=== PATIENT | male | born 1945 | race African-American/Black ===

== ENCOUNTER 2019-02-26 00:18 | Inpatient (IN) | payer MEDICARE, OTHER ==
[2019-02-26] VITALS (9 sets, daily range): BP systolic 131–177; BP diastolic 57–96
[~2019-02-26] VITALS: Ht 185.4 cm; Wt 75.3 kg
[2019-02-26] MEDS ORDERED: IPRATROPIUM BROMIDE (0.02%) 0.5MG/2.5ML NEB HHN STA (00:25)
[2019-02-26] MEDS ORDERED: ONDANSETRON HCL 4MG/2ML INJ IV STA (00:25)
[2019-02-26] MEDS ORDERED: METHYLPREDNISOLONE SOD SUCC 125 MG/2 ML VIAL IV STA (00:25)
[2019-02-26] MEDS ORDERED: ALBUTEROL (0.083%) 2.5MG/3ML NEB HHN SCH (00:30)
[2019-02-26] MEDS ORDERED: MAGNESIUM 2 G PREMIX 50 ML IV ONE (00:30)
[2019-02-26 00:51] LABS: BG BASE EXCESS -4.3 mmol/L (-2.0-2.0); BG BILEVEL POS AIRWAY PRESSURE 18/5; BG CARBOXYHEMOGLOBIN 0.6 % (0.5-1.5); BG DEOXYHEMOGLOBIN 1.2 % (0.0-5.0); BG FRACTION INSPIRED OXYGEN 40; BG HCO3 ACT 23.7 mmol/L (22.0-26.0); BG METHEMOGLOBIN 0.3 % (0.0-1.5); BG OXYGEN SATURATION 98.8 % (92.0-98.5); BG OXYHEMOGLOBIN 97.9 % (94.0-97.0); BG PCO2 54.8 mmHg (35.0-45.0); BG PH 7.254 (7.350-7.450); BG SAMPLE SITE RIGHT RADIAL; BG TOTAL HEMOGLOBIN 15.7 g/dL (12.0-18.0); BG VENT MODE MASK - BIPAP
[2019-02-26 00:51] LABS: HEMATOCRIT. 46.2 % (42.0-52.0); MEAN CORPUSCULAR HEMOGLOBIN 27.8 pg (28.0-32.0); MEAN CORPUSCULAR VOLUME 85.7 fL (80.0-94.0); MEAN PLATELET VOLUME 8.5 fl (7.4-10.4); PLATELET 251 x1000/uL (130-400); RED BLOOD CELL COUNT 5.39 mill/uL (4.7-6.1); RED CELL DISTRIBUTION WIDTH 15.3 % (11.6-14.6)
[2019-02-26 00:56] LABS: CHLORIDE 107 mEq/L (98-107)
[2019-02-26] MEDS ORDERED: SODIUM CHLORIDE 0.9% 1,000 ML IV ONE (00:58)
[2019-02-26] MEDS ORDERED: MAGNESIUM 1G PREMIX 100ML IV NR ×2 (01:00→02:00)
[2019-02-26 01:21] LABS: PLATELET ESTIMATE NORMAL
[2019-02-26] MEDS ORDERED: GUAIFENESIN/CODEINE 200-20MG/10ML UDC PO ONE (02:30)
[2019-02-26] MEDS ORDERED: DEXT 5%/0.45% NACL 1000ML 1,000 ML IV SCH (08:00)
[2019-02-26] MEDS ORDERED: DEXTROSE 50% WATER 50ML SYRINGE IV PRN ×2 (08:15)
[2019-02-26] MEDS: IPRATROPIUM BROMIDE (0.02%) 0.5MG/2.5ML NEB HHN SCH ×5 (09:00→23:56)
[2019-02-26] MEDS: METHYLPREDNISOLONE SOD SUCC 40 MG/ML VIAL IV SCH ×3 (09:05→21:14)
[2019-02-26] MEDS: BLOOD SUGAR DIAGNOSTIC STRIP TEST SCH ×3 (12:29→21:00)
[2019-02-26] MEDS: GUAIFENESIN-DM 200MG-20MG/10ML UDC PO PRN ×2 (13:26→22:10)
[2019-02-26] MEDS: INSULIN LISPRO 100 UNITS/ML SUBCUT SCH ×3 (13:27→22:11)
[2019-02-26] MEDS ORDERED: CLONIDINE 0.1MG TABLET PO PRN (16:45)
[2019-02-26] MEDS: BUDESONIDE 0.5MG/2ML NEB HHN SCH ×2 (16:56→20:50)
[2019-02-26] MEDS ORDERED: MONTELUKAST SODIUM 10MG TABLET PO SCH (17:00)
[2019-02-26 18:21] LABS: *AMPHETAMINES SCREEN URINE NEGATIVE (NEGATIVE); *BARBITURATES SCREEN URINE NEGATIVE (NEGATIVE); *BENZODIAZEPINES SCREEN URINE NEGATIVE (NEGATIVE); *COCAINE SCREEN URINE NEGATIVE (NEGATIVE); METHADONE URINE SCREEN NEGATIVE (NEGATIVE); OPIATES URINE SCREEN PRESUMTIVE POSITIVE (NEGATIVE)
[2019-02-26 18:22] LABS: CANNABINOID URINE SCREEN NEGATIVE (NEGATIVE); PHENCYCLIDINE URINE SCREEN NEGATIVE (NEGATIVE)
[2019-02-26 18:23] LABS: CLARITY URINE CLEAR (CLEAR); COLOR URINE YELLOW (YELLOW); KETONES URINE NEGATIVE (NEGATIVE); LEUKOCYTE ESTERASE URINE NEGATIVE (NEGATIVE); NITRITE URINE NEGATIVE (NEGATIVE); OCCULT BLOOD URINE NEGATIVE (NEGATIVE); PROTEIN URINE NEGATIVE (NEGATIVE); SPECIFIC GRAVITY URINE 1.013 (1.005-1.030); UROBILINOGEN URINE 0.2 E.U./dL (0.2-1.0)
[2019-02-26] MEDS: LORATADINE 10MG TABLET PO SCH (18:31)
[2019-02-26] MEDS: FAMOTIDINE 20MG TABLET PO SCH (21:14)
[2019-02-26] MEDS: INSULIN GLARGINE UD 100 UNITS/ML SYR SUBCUT SCH (22:11)
[2019-02-27] VITALS (8 sets, daily range): BP systolic 105–150; BP diastolic 62–96
[2019-02-27] MEDS: IPRATROPIUM BROMIDE (0.02%) 0.5MG/2.5ML NEB HHN SCH ×2 (04:40→08:53)
[2019-02-27] MEDS: METHYLPREDNISOLONE SOD SUCC 40 MG/ML VIAL IV SCH (06:29)
[2019-02-27] MEDS: GUAIFENESIN-DM 200MG-20MG/10ML UDC PO PRN (06:32)
[2019-02-27] MEDS: BLOOD SUGAR DIAGNOSTIC STRIP TEST SCH (08:13)
[2019-02-27] MEDS: LORATADINE 10MG TABLET PO SCH (08:25)
[2019-02-27] MEDS: FAMOTIDINE 20MG TABLET PO SCH (08:25)
[2019-02-27] MEDS: INSULIN LISPRO 100 UNITS/ML SUBCUT SCH (08:26)
[2019-02-27] MEDS: BUDESONIDE 0.5MG/2ML NEB HHN SCH (08:53)
[2019-02-27] MEDS ORDERED: ENOXAPARIN 30MG/0.3ML SYR SUBCUT SCH (10:23)
[2019-02-27] MEDS: INSULIN GLARGINE UD 100 UNITS/ML SYR SUBCUT SCH (10:31)
== END 2019-02-27 12:33 | disposition home or self-care (01) | DRG 189 ==
LOC: ER 00:18 → 5EST 02:24 → EDBEDREQ 02:42 → EDBEDREQSVC 02:42 → EDBEDREQTM 02:42 → ENRESERV 05:42
PROVIDERS: ADMIT Internal Medicine; ATTEND Internal Medicine
PROC: 5A09357 Assistance with Respiratory Ventilation, Less than 24 Consecutive Hours, Continuous Positive Airway Pressure (ICD-10-PCS; principal; 2019-02-26)
DX: J96.02 Acute respiratory failure with hypercapnia (principal); E87.2 Acidosis; J44.1 Chronic obstructive pulmonary disease with (acute) exacerbation; J44.0 Chronic obstructive pulmonary disease with (acute) lower respiratory infection; J20.9 Acute bronchitis, unspecified; E11.9 Type 2 diabetes mellitus without complications; Z77.22 Contact with and (suspected) exposure to environmental tobacco smoke (acute) (chronic); I10 Essential (primary) hypertension; Z87.891 Personal history of nicotine dependence; Z88.6 Allergy status to analgesic agent; Z79.84 Long term (current) use of oral hypoglycemic drugs
CPT/HCPCS: 36415; 36600; 71045; 80305; 81003; 82375; 82805; 82947; 82962; 83605; 83880; 84484; 93005; 93970; 94640; 99291; J1650; J1815; J2405; J2920; J2930; J3475; J7030; J7611; J7626

== ENCOUNTER 2019-07-06 17:40 | Emergency (ER) | payer MEDICARE, OTHER ==
[~2019-07-06] VITALS: Ht 180.3 cm; Wt 60.0 kg
[2019-07-06] MEDS ORDERED: PREDNISONE 20MG TABLET PO ONE (19:00)
[2019-07-06] MEDS ORDERED: IPRATROPIUM/ALBUTEROL 0.5-3(2.5)MG/3ML NEB HHN ONE (19:00)
[2019-07-06 23:00] VITALS: BP 124/76
== END 2019-07-07 00:07 | disposition home or self-care (01) ==
LOC: ER 17:40
DX: J44.1 Chronic obstructive pulmonary disease with (acute) exacerbation (principal); E11.9 Type 2 diabetes mellitus without complications; I10 Essential (primary) hypertension
CPT/HCPCS: 94640; 99285; J7512

== ENCOUNTER 2019-07-23 09:40 | Inpatient (IN) | payer MEDICARE, OTHER ==
[~2019-07-23] VITALS: Ht 172.7 cm; Wt 72.8 kg
[2019-07-23] MEDS ORDERED: ALBU18HF2 IH (09:48)
[2019-07-23] MEDS ORDERED: METF-815 PO (09:48)
[2019-07-23] MEDS ORDERED: LEVO25TA7 PO (09:48)
[2019-07-23] MEDS ORDERED: MAGNESIUM 2 G PREMIX 50 ML IV STA (10:02)
[2019-07-23] MEDS ORDERED: ALBUTEROL (0.083%) 2.5MG/3ML NEB HHN STA ×2 (10:02→12:45)
[2019-07-23] MEDS ORDERED: METHYLPREDNISOLONE SOD SUCC 125 MG/2 ML VIAL IV STA (10:02)
[2019-07-23] MEDS ORDERED: IPRATROPIUM BROMIDE (0.02%) 0.5MG/2.5ML NEB HHN STA (10:02)
[2019-07-23 10:25] LABS: BASOPHILS % 0.4 % (0.0-2.0); EOSINOPHILS % 6.5 % (0.0-5.0); HEMATOCRIT. 56.6 % (42.0-52.0); HEMOGLOBIN. 18.2 g/dL (14.0-18.0); LYMPHOCYTES % 37.1 % (20.0-50.0); MEAN CORPUSCULAR HEMOGLOBIN 26.9 pg (28.0-32.0); MEAN CORPUSCULAR VOLUME 83.6 fL (80.0-94.0); MEAN PLATELET VOLUME 8.3 fl (7.4-10.4); MONOCYTES % 6.7 % (2.0-8.0); NEUTROPHILS % 49.3 % (40.0-76.0); PLATELET 261 x1000/uL (130-400); RED BLOOD CELL COUNT 6.77 mill/uL (4.7-6.1); RED CELL DISTRIBUTION WIDTH 17.1 % (11.6-14.6)
[2019-07-23 10:30] LABS: CHLORIDE 107 mEq/L (98-107)
[2019-07-23] MEDS ORDERED: HYDRALAZINE 20MG/ML VIAL IV ONE (13:00)
[2019-07-23] MEDS ORDERED: DOCUSATE SODIUM 100MG CAPSULE PO PRN (14:45)
[2019-07-23] MEDS ORDERED: ACETAMINOPHEN 325MG TABLET PO PRN (14:45)
[2019-07-23] MEDS ORDERED: CLONIDINE 0.1MG TABLET PO PRN (14:45)
[2019-07-23] MEDS ORDERED: ONDANSETRON HCL 4MG/2ML INJ IV PRN (14:45)
[2019-07-23] MEDS ORDERED: IPRATROPIUM/ALBUTEROL 0.5-3(2.5)MG/3ML NEB NEB PRN (14:45)
[2019-07-23] MEDS ORDERED: MAGNESIUM/ALUMINUM HYDROXIDE/SIMETHICONE 30ML UDC PO PRN (14:45)
[2019-07-23] MEDS ORDERED: HYDROCODONE/ACETAMINOPHEN 5/325MG TABLET PO PRN (14:45)
[2019-07-23] MEDS ORDERED: MORPHINE SULFATE 2 MG/ML CPJ (NOT FOR IM USE) IV PRN (14:45)
[2019-07-23] MEDS ORDERED: LEVOFLOXACIN 500MG PREMIX 100 ML IV NR (15:00)
[2019-07-23] MEDS ORDERED: LISINOPRIL 10MG TABLET PO NR (15:00)
[2019-07-23] MEDS: AMLODIPINE 10MG TABLET PO SCH (15:04)
[2019-07-23] MEDS: METHYLPREDNISOLONE SOD SUCC 125 MG/2 ML VIAL IV SCH ×2 (15:05→22:25)
[2019-07-23 20:28] VITALS: BP 150/95
[2019-07-23 20:58] VITALS: BP 150/95
[2019-07-23] MEDS: GUAIFENESIN 200MG/10ML SUGAR FREE UDC PO PRN (22:24)
[2019-07-23] MEDS: ENOXAPARIN 40MG/0.4ML SYR SUBCUT SCH (23:31)
[2019-07-24] VITALS: BP 109/78
[2019-07-24] MEDS: IPRATROPIUM/ALBUTEROL 0.5-3(2.5)MG/3ML NEB NEB SCH ×4 (01:50→21:26)
[2019-07-24 04:00] VITALS: BP 113/74
[2019-07-24] MEDS: METHYLPREDNISOLONE SOD SUCC 125 MG/2 ML VIAL IV SCH ×4 (04:54→21:00)
[2019-07-24 06:35] LABS: BASOPHILS % 0.2 % (0.0-2.0); EOSINOPHILS % 0.1 % (0.0-5.0); HEMATOCRIT. 47.2 % (42.0-52.0); HEMOGLOBIN. 15.6 g/dL (14.0-18.0); LYMPHOCYTES % 25.6 % (20.0-50.0); MEAN CORPUSCULAR HEMOGLOBIN 26.9 pg (28.0-32.0); MEAN CORPUSCULAR VOLUME 81.3 fL (80.0-94.0); MEAN PLATELET VOLUME 8.7 fl (7.4-10.4); NEUTROPHILS % 72.1 % (40.0-76.0); PLATELET 238 x1000/uL (130-400); RED CELL DISTRIBUTION WIDTH 16.1 % (11.6-14.6)
[2019-07-24 07:38] LABS: CHLORIDE 106 mEq/L (98-107)
[2019-07-24 07:44] LABS: BG BASE EXCESS -1.5 mmol/L (-2.0-2.0); BG CARBOXYHEMOGLOBIN 0.5 % (0.5-1.5); BG DEOXYHEMOGLOBIN 8.2 % (0.0-5.0); BG HCO3 ACT 23.4 mmol/L (22.0-26.0); BG METHEMOGLOBIN 0.2 % (0.0-1.5); BG OXYGEN SATURATION 91.7 % (92.0-98.5); BG OXYHEMOGLOBIN 91.1 % (94.0-97.0); BG PCO2 40.2 mmHg (35.0-45.0); BG PH 7.382 (7.350-7.450); BG PO2 63.3 mmHg (75.0-100.0); BG SAMPLE SITE RIGHT RADIAL; BG TOTAL HEMOGLOBIN 16.2 g/dL (12.0-18.0); BG VENT MODE NASAL CANNULA
[2019-07-24 08:00] VITALS: BP 121/80
[2019-07-24] MEDS: AMLODIPINE 10MG TABLET PO SCH (09:50)
[2019-07-24] MEDS: LISINOPRIL 10MG TABLET PO SCH (09:50)
[2019-07-24 12:00] VITALS: BP 117/77
[2019-07-24] MEDS ORDERED: LEVOFLOXACIN 500MG PREMIX 100 ML IV SCH ×2 (14:00→16:00)
[2019-07-24 16:00] VITALS: BP 103/74
[2019-07-24] MEDS: LEVOTHYROXINE SODIUM 25MCG TABLET PO SCH (16:32)
[2019-07-24] MEDS: GUAIFENESIN 200MG/10ML SUGAR FREE UDC PO PRN ×2 (18:15→22:18)
[2019-07-24 20:00] VITALS: BP 95/61
[2019-07-24] MEDS: ENOXAPARIN 40MG/0.4ML SYR SUBCUT SCH (20:59)
[2019-07-25] VITALS: BP 97/70
[2019-07-25] MEDS: IPRATROPIUM/ALBUTEROL 0.5-3(2.5)MG/3ML NEB NEB SCH ×2 (02:30→08:58)
[2019-07-25 04:00] VITALS: BP 102/69
[2019-07-25] MEDS: METHYLPREDNISOLONE SOD SUCC 125 MG/2 ML VIAL IV SCH ×2 (04:42→09:47)
[2019-07-25] MEDS: GUAIFENESIN 200MG/10ML SUGAR FREE UDC PO PRN (04:42)
[2019-07-25] MEDS: LEVOTHYROXINE SODIUM 25MCG TABLET PO SCH (05:51)
[2019-07-25] MEDS: LISINOPRIL 10MG TABLET PO SCH (09:49)
[2019-07-25] MEDS: AMLODIPINE 10MG TABLET PO SCH (09:49)
[2019-07-25 12:20] VITALS: BP 115/70
== END 2019-07-25 13:45 | disposition home or self-care (01) | DRG 189 ==
LOC: ER 09:40 → ENRESERV 20:15 → 5WST 20:55
PROVIDERS: ADMIT Internal Medicine; ATTEND Internal Medicine
DX: J96.01 Acute respiratory failure with hypoxia (principal); J44.1 Chronic obstructive pulmonary disease with (acute) exacerbation; E03.9 Hypothyroidism, unspecified; E11.9 Type 2 diabetes mellitus without complications; I10 Essential (primary) hypertension; Z87.891 Personal history of nicotine dependence; Z88.6 Allergy status to analgesic agent; Z79.84 Long term (current) use of oral hypoglycemic drugs; Z79.899 Other long term (current) drug therapy
CPT/HCPCS: 36415; 36600; 71045; 80053; 82375; 82805; 83880; 84484; 85025; 93005; 93970; 94640; 94644; 96365; 99285; J0360; J1650; J1956; J2930

== ENCOUNTER 2022-05-25 10:23 | Emergency (ER) | payer MEDICARE, MEDICAID ==
[~2022-05-25] VITALS: Ht 175.3 cm; Wt 70.0 kg
[~2022-05-25 10:23] MED LIST: ALBU18HF2 IH; ALBU2.5V13 NEB; CLOP-31 PO; METF-873 PO; PULM50 HHN; VIT1TABL62 PO
[2022-05-25] MEDS ORDERED: METHYLPREDNISOLONE SOD SUCC 125 MG/2 ML VIAL IV STA (10:40)
[2022-05-25] MEDS ORDERED: IPRATROPIUM BROMIDE (0.02%) 0.5MG/2.5ML NEB HHN STA (10:40)
[2022-05-25] MEDS: ALBUTEROL (0.083%) 2.5MG/3ML NEB HHN SCH ×3 (11:13→13:11)
[2022-05-25 12:09] LABS: BASOPHILS % 0.3 % (0.0-2.0); HEMOGLOBIN. 14.1 g/dL (14.0-18.0); LYMPHOCYTES % 44.3 % (20.0-50.0); MEAN CORPUSCULAR HEMOGLOBIN 28.3 pg (28.0-32.0); MEAN CORPUSCULAR VOLUME 86.1 fL (80.0-94.0); MEAN PLATELET VOLUME 8.1 fl (7.4-10.4); MONOCYTES % 8.4 % (2.0-8.0); PLATELET 239 x1000/uL (130-400); RED BLOOD CELL COUNT 4.99 mill/uL (4.7-6.1); RED CELL DISTRIBUTION WIDTH 14.3 % (11.6-14.6)
[2022-05-25 12:14] LABS: CHLORIDE 102 mEq/L (98-107)
[2022-05-25] MEDS ORDERED: P50 MT (14:12)
[2022-05-25 14:42] VITALS: BP 139/82
== END 2022-05-25 14:44 | disposition home or self-care (01) ==
LOC: ER 10:39
DX: J44.9 Chronic obstructive pulmonary disease, unspecified (principal); I10 Essential (primary) hypertension; Z99.81 Dependence on supplemental oxygen; Z91.199 Patient's noncompliance with other medical treatment and regimen due to unspecified reason; I45.2 Bifascicular block; E11.9 Type 2 diabetes mellitus without complications; Z88.6 Allergy status to analgesic agent; Z79.84 Long term (current) use of oral hypoglycemic drugs; Z79.899 Other long term (current) drug therapy
CPT/HCPCS: 36415; 71045; 80053; 83880; 84484; 85025; 93005; 94640; 96374; 99285; J2930

== ENCOUNTER 2022-05-27 13:54 | Inpatient (IN) | payer MEDICARE, MEDICAID ==
[~2022-05-27] VITALS: Ht 185.4 cm; Wt 70.3 kg
[~2022-05-27 13:54] MED LIST changes: +P50 MT
[2022-05-27] MEDS ORDERED: IPRATROPIUM BROMIDE (0.02%) 0.5MG/2.5ML NEB HHN STA ×2 (14:00)
[2022-05-27] MEDS ORDERED: METHYLPREDNISOLONE SOD SUCC 125 MG/2 ML VIAL IV STA (14:00)
[2022-05-27 14:26] LABS: BASOPHILS % 0.7 % (0.0-2.0); EOSINOPHILS % 6.7 % (0.0-5.0); HEMATOCRIT. 45.5 % (42.0-52.0); HEMOGLOBIN. 15.1 g/dL (14.0-18.0); LYMPHOCYTES % 46.5 % (20.0-50.0); MEAN CORPUSCULAR HEMOGLOBIN 28.8 pg (28.0-32.0); MEAN CORPUSCULAR VOLUME 86.9 fL (80.0-94.0); MONOCYTES % 7.9 % (2.0-8.0); NEUTROPHILS % 38.2 % (40.0-76.0); PLATELET 272 x1000/uL (130-400); RED BLOOD CELL COUNT 5.24 mill/uL (4.7-6.1); RED CELL DISTRIBUTION WIDTH 14.5 % (11.6-14.6)
[2022-05-27 14:35] LABS: CHLORIDE 106 mEq/L (98-107)
[2022-05-27 15:12] LABS: BG BASE EXCESS 3.9 mmol/L (-2.0-2.0); BG DEOXYHEMOGLOBIN 0.3 % (0.0-5.0); BG FRACTION INSPIRED OXYGEN 100; BG HCO3 ACT 30.7 mmol/L (22.0-26.0); BG METHEMOGLOBIN 0.2 % (0.0-1.5); BG OXYGEN SATURATION 99.7 % (92.0-98.5); BG OXYHEMOGLOBIN 99.5 % (94.0-97.0); BG PH 7.365 (7.350-7.450); BG PO2 494.5 mmHg (75.0-100.0); BG SAMPLE SITE LEFT RADIAL; BG TOTAL HEMOGLOBIN 14.8 g/dL (12.0-18.0); BG TOTAL RESPIRATORY RATE 25 b/min; BG VENT MODE MASK - BIPAP
[2022-05-27 16:23] LABS: CHLORIDE 108 mEq/L (98-107)
[2022-05-28 10:53] VITALS: BP 121/91
[2022-05-28] MEDS ORDERED: ONDANSETRON HCL 4MG/2ML INJ IV PRN (11:00)
[2022-05-28] MEDS ORDERED: ACETAMINOPHEN 325MG TABLET PO PRN (11:00)
[2022-05-28] MEDS ORDERED: DEXTROSE 50% WATER 50ML SYRINGE IV PRN (11:00)
[2022-05-28 12:00] VITALS: BP 138/76
[2022-05-28] MEDS: BLOOD SUGAR DIAGNOSTIC STRIP TEST SCH ×3 (12:10→21:57)
[2022-05-28] MEDS: PREDNISONE 20MG TABLET PO SCH (13:07)
[2022-05-28] MEDS: INSULIN LISPRO 100 UNITS/ML SUBCUT SCH ×3 (13:08→22:15)
[2022-05-28 16:00] VITALS: BP 135/94
[2022-05-28 20:00] VITALS: BP 134/68
[2022-05-28] MEDS: IPRATROPIUM/ALBUTEROL 0.5-3(2.5)MG/3ML NEB HHN SCH (20:23)
[2022-05-28] MEDS: INSULIN GLARGINE 100 UNITS/ML SUBCUT SCH (22:16)
[2022-05-29] VITALS: BP 131/91
[2022-05-29] MEDS: IPRATROPIUM/ALBUTEROL 0.5-3(2.5)MG/3ML NEB HHN SCH ×2 (01:01→09:23)
[2022-05-29 04:00] VITALS: BP 129/86
[2022-05-29] MEDS: BLOOD SUGAR DIAGNOSTIC STRIP TEST SCH ×2 (06:03→11:25)
[2022-05-29] MEDS: INSULIN LISPRO 100 UNITS/ML SUBCUT SCH ×2 (06:03→11:46)
[2022-05-29 08:00] VITALS: BP 132/93
[2022-05-29] MEDS: PREDNISONE 20MG TABLET PO SCH (08:52)
[2022-05-29] MEDS: INSULIN GLARGINE 100 UNITS/ML SUBCUT SCH (08:52)
[2022-05-29] MEDS ORDERED: P20 MT (09:08)
[2022-05-29 12:09] VITALS: BP 135/76
[2022-05-29 12:17] VITALS: BP 135/76
== END 2022-05-29 14:35 | disposition home or self-care (01) | DRG 189 ==
LOC: ER 14:10 → MICUSO 15:21 → EDBEDREQSVC 21:36 → 7EST 05-28 10:06
PROVIDERS: ADMIT Internal Medicine; ATTEND Internal Medicine
PROC: 5A09357 Assistance with Respiratory Ventilation, Less than 24 Consecutive Hours, Continuous Positive Airway Pressure (ICD-10-PCS; principal; 2022-05-27)
DX: J96.20 Acute and chronic respiratory failure, unspecified whether with hypoxia or hypercapnia (principal); E11.9 Type 2 diabetes mellitus without complications; J44.9 Chronic obstructive pulmonary disease, unspecified; Z20.822 Contact with and (suspected) exposure to COVID-19; J45.909 Unspecified asthma, uncomplicated; I10 Essential (primary) hypertension; Z88.6 Allergy status to analgesic agent; Z82.49 Family history of ischemic heart disease and other diseases of the circulatory system
CPT/HCPCS: 36415; 36600; 71045; 80048; 80053; 82375; 82805; 82962; 83036; 83880; 84484; 85025; 87426; 93005; 94640; 94660; 99291; J1815; J2930; J7512

== ENCOUNTER 2024-04-23 02:32 | Inpatient (IN) | payer MEDICARE, MEDICAID ==
[~2024-04-23] VITALS: Ht 152.4 cm; Wt 70.3 kg
[~2024-04-23 02:32] MED LIST changes: +METF-1149 PO; -METF-873 PO; +P20 MT; -P50 MT
[2024-04-23] MEDS ORDERED: VANCOMYCIN 1G PREMIX 200 ML IV ONE (02:45)
[2024-04-23 03:29] LABS: BASOPHILS % 0.4 % (0.0-2.0); HEMATOCRIT. 43.2 % (42.0-52.0); HEMOGLOBIN. 13.5 g/dL (14.0-18.0); LYMPHOCYTES % 12.6 % (20.0-50.0); MEAN CORPUSCULAR HEMOGLOBIN 26.3 pg (28.0-32.0); MEAN CORPUSCULAR HGB CONC 31.3 g/dL (31.0-37.0); MEAN CORPUSCULAR VOLUME 83.9 fL (80.0-94.0); MEAN PLATELET VOLUME 8.9 fl (7.4-10.4); MONOCYTES % 10.5 % (2.0-8.0); NEUTROPHILS % 76.5 % (40.0-76.0); PLATELET 284 x1000/uL (130-400); RED BLOOD CELL COUNT 5.15 mill/uL (4.7-6.1); RED CELL DISTRIBUTION WIDTH 16.4 % (11.6-14.6); WHITE BLOOD COUNT 9.5 x1000/uL (4.5-11.0)
[2024-04-23] MEDS: PIPERACILLIN/TAZO 3.375G/50ML 50 ML IV ONE (03:36)
[2024-04-23 03:37] LABS: CHLORIDE 104 mEq/L (98-107); POTASSIUM 4.9 mEq/L (3.5-5.1); SODIUM 136 mEq/L (136-145)
[2024-04-23 03:38] LABS: CARBON DIOXIDE 24 mEq/L (21-32)
[2024-04-23 03:39] LABS: CALCIUM 9.5 mg/dL (8.7-10.4)
[2024-04-23] MEDS: SODIUM CHLORIDE 0.9% (SEPSIS BOLUS) IV ONE (03:39)
[2024-04-23 03:43] LABS: CREATININE 2.7 mg/dL (0.6-1.3); GLUCOSE 209 mg/dL (70-105); UREA NITROGEN BLOOD 22 mg/dL (9-23)
[2024-04-23 03:44] LABS: TROPONIN I HIGH SENSITIVITY 28 ng/L (3.0-53)
[2024-04-23 03:45] LABS: ALANINE AMINOTRANSFERASE < 7 IU/L (10-49); ALBUMIN 4.2 g/dL (3.2-4.8); ASPARTATE AMINOTRANSFERASE 16 IU/L (<34)
[2024-04-23 03:46] LABS: BILIRUBIN DIRECT 0.1 mg/dL (<=3.0); BILIRUBIN TOTAL 0.3 mg/dL (0.1-1.0); PROTEIN TOTAL 7.8 g/dL (6.0-8.3)
[2024-04-23 03:47] LABS: BG BASE EXCESS -5.6 mmol/L (-2.0-3.0); BG CARBOXYHEMOGLOBIN 0.4 % (0.5-1.5); BG DEOXYHEMOGLOBIN 3.5 % (0.0-5.0); BG FRACTION INSPIRED OXYGEN 32; BG HCO3 ACT 19.2 mmol/L (21.0-28.0); BG METHEMOGLOBIN 0.3 % (0.5-1.5); BG OXYGEN SATURATION 96.5 % (94.0-98.0); BG OXYHEMOGLOBIN 95.8 % (94.0-98.0); BG PH 7.356 (7.350-7.450); BG PO2 89.4 mmHg (83.0-108.0); BG SAMPLE SITE RIGHT RADIAL; BG TOTAL HEMOGLOBIN 12.6 g/dL (13.5-17.5); BG VENT MODE NASAL CANNULA
[2024-04-23] MEDS: VANCOMYCIN 1G PREMIX 200 ML IV NR (04:13)
[2024-04-23 04:46] LABS: INR 1.3; PROTHROMBIN TIME 14.4 sec (9.6-11.0)
[2024-04-23 05:15] LABS: LACTIC ACID 3.6 mmol/L (0.4-2.0)
[2024-04-23 06:10] LABS: TROPONIN I HIGH SENSITIVITY 29 ng/L (3.0-53)
[2024-04-23] MEDS ORDERED: DEXTROSE 50% WATER 50ML SYRINGE IV PRN (11:00)
[2024-04-23] MEDS ORDERED: ONDANSETRON HCL 4MG/2ML INJ IV PRN (11:00)
[2024-04-23] MEDS: CEFTRIAXONE 1GM/50ML 50 ML IV SCH (12:12)
[2024-04-23 13:00] VITALS: BP 141/108; PULSE 100; RESP 20; TEMP 36.55848; O2SAT 92
[2024-04-23] MEDS: BLOOD SUGAR DIAGNOSTIC STRIP TEST SCH (13:00)
[2024-04-23 14:00] VITALS: BP 146/110; PULSE 95; RESP 20; TEMP 36.8072
[2024-04-23] MEDS ORDERED: ALBUTEROL 6.7GM HFA INHALER ORI PRN (14:11)
[2024-04-23] MEDS: AZITHROMYCIN 500 MG TABLET PO NR (15:37)
[2024-04-23 16:00] VITALS: BP 171/151; PULSE 113; RESP 20; O2SAT 92
[2024-04-23] MEDS: DILTIAZEM HCL 5MG/ML 5ML VIAL IV NR (16:03)
[2024-04-23] MEDS: INSULIN LISPRO 100 UNITS/ML SUBCUT SCH (16:04)
[2024-04-23 18:00] VITALS: BP 129/65; PULSE 80; RESP 19; O2SAT 93
[2024-04-23] MEDS: DILTIAZEM HCL 30MG TABLET PO SCH (19:55)
[2024-04-23] MEDS: SODIUM CHLORIDE 0.9% 1,000 ML IV SCH (19:56)
[2024-04-23] MEDS: DEXAMETHASONE 10 MG/ML VIAL IV SCH (21:39)
[2024-04-23] MEDS: ACETAMINOPHEN 325MG TABLET PO PRN (21:42)
[2024-04-24] VITALS (10 sets, daily range): BP systolic 130–159; BP diastolic 71–101; PULSE 69–89; RESP 18–23; TEMP 36.3918–36.78072; O2SAT 96–100
[2024-04-24 06:04] LABS: CHLORIDE 107 mEq/L (98-107); SODIUM 136 mEq/L (136-145)
[2024-04-24 06:05] LABS: CARBON DIOXIDE 20 mEq/L (21-32)
[2024-04-24 06:06] LABS: CALCIUM 9.1 mg/dL (8.7-10.4)
[2024-04-24 06:10] LABS: CREATININE 1.1 mg/dL (0.6-1.3); GLUCOSE 197 mg/dL (70-105); UREA NITROGEN BLOOD 15 mg/dL (9-23)
[2024-04-24] MEDS: AZITHROMYCIN 250 MG TABLET PO SCH (11:11)
[2024-04-24 11:36] LABS: BASOPHILS % 0.1 % (0.0-2.0); HEMATOCRIT. 37.8 % (42.0-52.0); HEMOGLOBIN. 12.3 g/dL (14.0-18.0); LYMPHOCYTES % 10.6 % (20.0-50.0); MEAN CORPUSCULAR HGB CONC 32.6 g/dL (31.0-37.0); MEAN PLATELET VOLUME 8.9 fl (7.4-10.4); MONOCYTES % 2.5 % (2.0-8.0); NEUTROPHILS % 86.8 % (40.0-76.0); PLATELET 233 x1000/uL (130-400); RED BLOOD CELL COUNT 4.57 mill/uL (4.7-6.1); RED CELL DISTRIBUTION WIDTH 16.1 % (11.6-14.6); WHITE BLOOD COUNT 8.7 x1000/uL (4.5-11.0)
[2024-04-24 12:29] LABS: MEAN CORPUSCULAR VOLUME 82.8 fL (80.0-94.0)
[2024-04-25] VITALS (9 sets, daily range): BP systolic 145–165; BP diastolic 65–100; PULSE 70–107; RESP 15–24; TEMP 36.61404–37.00296; O2SAT 85–97
[2024-04-25] MEDS: CEFTRIAXONE 1GM/50ML 50 ML IV SCH (21:21)
[2024-04-25] MEDS: CLONIDINE 0.1MG TABLET PO PRN (21:21)
[2024-04-25 22:24] LABS: HEMATOCRIT 38.3 % (42.0-52.0); HEMOGLOBIN 12.2 g/dL (14.0-18.0); MEAN CORPUSCULAR HEMOGLOBIN 26.4 pg (28.0-32.0); MEAN CORPUSCULAR HGB CONC 31.8 g/dL (31.0-37.0); MEAN CORPUSCULAR VOLUME 82.8 fL (80.0-94.0); PLATELET 297 x1000/uL (130-400); RED BLOOD CELL COUNT 4.62 mill/uL (4.7-6.1); RED CELL DISTRIBUTION WIDTH 15.9 % (11.6-14.6); WHITE BLOOD COUNT 11.6 x1000/uL (4.5-11.0)
[2024-04-25 22:34] LABS: CHLORIDE 105 mEq/L (98-107); SODIUM 139 mEq/L (136-145)
[2024-04-25 22:35] LABS: CALCIUM 9.2 mg/dL (8.7-10.4); CARBON DIOXIDE 27 mEq/L (21-32)
[2024-04-25 22:40] LABS: CREATININE 0.9 mg/dL (0.6-1.3); GLUCOSE 130 mg/dL (70-105); UREA NITROGEN BLOOD 24 mg/dL (9-23)
[2024-04-26] VITALS (7 sets, daily range): BP systolic 98–174; BP diastolic 59–91; PULSE 59–91; RESP 15–20; TEMP 36.28068–37.05852; O2SAT 92–98
[2024-04-26 08:24] LABS: BG BASE EXCESS 0.1 mmol/L (-2.0-3.0); BG CARBOXYHEMOGLOBIN 0.5 % (0.5-1.5); BG DEOXYHEMOGLOBIN 6.2 % (0.0-5.0); BG HCO3 ACT 23.8 mmol/L (21.0-28.0); BG METHEMOGLOBIN 0.3 % (0.5-1.5); BG OXYGEN SATURATION 93.8 % (94.0-98.0); BG PCO2 35.9 mmHg (35.0-48.0); BG PO2 69.2 mmHg (83.0-108.0); BG SAMPLE SITE RIGHT RADIAL; BG TOTAL HEMOGLOBIN 12.7 g/dL (13.5-17.5); BG VENT MODE ROOM AIR
[2024-04-26 13:00] LABS: CARBON DIOXIDE 27 mEq/L (21-32); CHLORIDE 106 mEq/L (98-107); POTASSIUM 3.9 mEq/L (3.5-5.1); SODIUM 138 mEq/L (136-145)
[2024-04-26 13:04] LABS: BASOPHILS % 0.1 % (0.0-2.0); HEMATOCRIT. 37.4 % (42.0-52.0); HEMOGLOBIN. 11.9 g/dL (14.0-18.0); LYMPHOCYTES % 10.5 % (20.0-50.0); MEAN CORPUSCULAR HEMOGLOBIN 26.4 pg (28.0-32.0); MEAN CORPUSCULAR HGB CONC 31.8 g/dL (31.0-37.0); MEAN PLATELET VOLUME 9.1 fl (7.4-10.4); NEUTROPHILS % 85.4 % (40.0-76.0); PLATELET 276 x1000/uL (130-400); RED CELL DISTRIBUTION WIDTH 15.8 % (11.6-14.6)
[2024-04-26 13:06] LABS: CREATININE 0.9 mg/dL (0.6-1.3); GLUCOSE 197 mg/dL (70-105); UREA NITROGEN BLOOD 23 mg/dL (9-23)
[2024-04-26 13:07] LABS: ALANINE AMINOTRANSFERASE 22 IU/L (10-49); ASPARTATE AMINOTRANSFERASE 52 IU/L (<34)
[2024-04-26 13:08] LABS: ALBUMIN 3.6 g/dL (3.2-4.8); BILIRUBIN TOTAL 0.4 mg/dL (0.1-1.0); PROTEIN TOTAL 6.8 g/dL (6.0-8.3)
[2024-04-26] MEDS ORDERED: DEXA4TAB MT (17:48)
[2024-04-26] MEDS ORDERED: ALBU90AE INH (17:48)
[2024-04-27] VITALS: BP 147/81; PULSE 63; RESP 18; TEMP 36.28068; O2SAT 96
[2024-04-27 04:00] VITALS: BP 155/80; PULSE 51; RESP 15; TEMP 36.22512; O2SAT 99
[2024-04-27 08:00] VITALS: BP 154/115; PULSE 79; RESP 17; TEMP 36.16956; O2SAT 92
[2024-04-27 12:00] VITALS: BP 106/62; PULSE 80; RESP 23; TEMP 36.3918; O2SAT 98
[2024-04-27 16:00] VITALS: BP 158/132; PULSE 66; RESP 14; O2SAT 99
[2024-04-27 20:00] VITALS: BP 134/58; PULSE 62; RESP 24; TEMP 36.9474; O2SAT 99
[2024-04-28] VITALS: BP 154/75; PULSE 65; RESP 17; TEMP 37.00296; O2SAT 98
[2024-04-28 04:00] VITALS: BP 134/61; PULSE 57; RESP 16; TEMP 36.72516; O2SAT 98
[2024-04-28 08:00] VITALS: BP 142/71; PULSE 62; RESP 16; TEMP 36.61404; O2SAT 97
[2024-04-28 11:59] VITALS: BP 125/86; PULSE 75; TEMP 98.1; O2SAT 98
[2024-04-28 12:00] VITALS: BP 138/72; PULSE 62; RESP 18; TEMP 36.72516; O2SAT 98
[2024-04-28 16:18] VITALS: BP 138/72; PULSE 62; RESP 18; TEMP 36.72516; O2SAT 98
== END 2024-04-28 16:30 | disposition home or self-care (01) | DRG 177 ==
LOC: ER 02:51 → 5EST 04:45 → EDBEDREQTM 05:57 → EDBEDREQSVC 05:57
PROVIDERS: ADMIT Internal Medicine; ATTEND Internal Medicine
DX: U07.1 COVID-19 (principal); J12.82 Pneumonia due to coronavirus disease 2019; J96.01 Acute respiratory failure with hypoxia; N17.0 Acute kidney failure with tubular necrosis; J44.0 Chronic obstructive pulmonary disease with (acute) lower respiratory infection; G93.40 Encephalopathy, unspecified; I10 Essential (primary) hypertension; J45.909 Unspecified asthma, uncomplicated; E11.9 Type 2 diabetes mellitus without complications; Z79.02 Long term (current) use of antithrombotics/antiplatelets; Z79.51 Long term (current) use of inhaled steroids; Z79.84 Long term (current) use of oral hypoglycemic drugs; Z82.49 Family history of ischemic heart disease and other diseases of the circulatory system; Z88.6 Allergy status to analgesic agent
CPT/HCPCS: 36415; 36600; 71045; 80048; 80053; 80076; 82375; 82805; 82962; 83605; 83880; 84145; 84484; 85025; 85027; 87426; 87804; 93005; 99291; J0696; J1100; J1815; J2543; J3370; J3490; J7030